=== PATIENT | female | born 2000 | race Caucasian/White ===

== ENCOUNTER 2023-01-03 15:02 | Emergency (ER) | payer BC ==
[2023-01-03] MEDS ORDERED: Sucralfate 1 GM/10 ML UDCUP ONE (16:32)
[2023-01-03] MEDS ORDERED: Lidocaine Viscous Sol 2% 15 ml UD Cup ONE (16:32)
== END 2023-01-03 17:20 | disposition home or self-care (01) ==
LOC: ERS 15:02
DX: K21.9 Gastro-esophageal reflux disease without esophagitis (principal)
CPT/HCPCS: 99283